=== PATIENT | female | born 1965 | race Caucasian/White ===

== ENCOUNTER 2021-10-13 14:03 | Outpatient (REF) | payer BC, SELFPAY ==
--- NOTE | ~2021-10-13 | CT_ITS ---
EXAMINATION: CT ABDOMEN AND PELVIS WITH CONTRAST CLINICAL INFORMATION: Epigastric pain. COMPARISON: None TECHNIQUE: Multidetector volumetric images were obtained from the superior aspect of the liver through the pubic symphysis following administration 85 mL of Omnipaque 350 intravenous contrast. Sagittal and coronal reformatted images were obtained on the technologist's workstation. Oral contrast: Yes. This CT examination was performed using dose optimization techniques as appropriate, variously including the following: *Automated exposure control *Adjustment of mA and/or kV according to patient size (this includes techniques or standardized protocols for targeted exams where dose is matched to indication/reason for exam; i.e. extremities or head) *Use of iterative reconstruction technique DLP: 256 mGy-cm FINDINGS: LUNG BASES: The visualized lung bases are unremarkable. LIVER, GALLBLADDER, AND BILIARY TREE: The liver measures 17.7 cm craniocaudally but is otherwise normal in attenuation and shape without discrete focal abnormalities. Prior cholecystectomy with expected mild dilatation of the common bile duct and no significant intrahepatic biliary ductal dilatation. PANCREAS: Unremarkable. SPLEEN: Unremarkable. ADRENAL GLANDS: Unremarkable. KIDNEYS AND URETERS: The kidneys are normal in size, shape, and attenuation. No hydronephrosis, hydroureter, or calculi seen. No perinephric stranding. BLADDER: Unremarkable. GASTROINTESTINAL TRACT: The stomach and the small bowel are nondilated. The appendix is not definitely identified, however, there are no regional inflammatory changes to suspect acute appendicitis. Moderate sigmoid diverticulosis with no significant associated wall thickening or pericolonic inflammatory changes to suspect acute diverticulitis. No bowel obstruction. ABDOMINAL WALL: No significant hernia is appreciated. LYMPH NODES: No lymphadenopathy by size criteria. VASCULAR: Scattered atherosclerotic disease. The abdominal aorta is of normal diameter. PELVIC VISCERA: Unremarkable. OSSEOUS STRUCTURES: Nonaggressive-appearing fibro-osseous lesion in the left acetabulum (3:64). Mild thoracolumbar spondylosis. CT/CT abdomen pelvis w con IMPRESSION: Sigmoid diverticulosis but no evidence to suggest acute diverticulitis. Borderline hepatomegaly. Otherwise, no definite abnormalities to explain the patient's symptoms.
[2021-10-13] MEDS: iohexoL 350 MG/ML 100 ML INFUS..BTL IV (16:51)
[2021-10-13] MEDS: Barium Sulfate Oral (Vanilla) 450 ML ORAL.SUSP 900 ML PO (16:52)
[2021-10-13 17:49] LABS: Appearance Urine CLEAR; Color Urine STRAW; Glucose Urine UA NEG (NEG); Leukocyte Esterase Urine NEG (NEG); Nitrite Urine NEG (NEG); Specific Gravity - Urine <= 1.005 (1.005-1.025); Urine Blood TRACE (NEG); Urine Ketones NEG (NEG); Urine Protein NEG (NEG-TRACE)
[2021-10-13 17:59] LABS: WBC Urine 0-2 /HPF (0-4)
== END 2021-10-13 14:04 | disposition home or self-care (01) ==
LOC: HO.CT 14:03
PROVIDERS: PCP Internal Medicine; Visit Provider Internal Medicine
DX: R10.0 Acute abdomen (principal); R82.90 Unspecified abnormal findings in urine; R10.13 Epigastric pain
CPT/HCPCS: 74177; 81001; 87086; Q9967

== ENCOUNTER 2021-11-16 15:15 | Emergency (ER) | payer BC, SELFPAY ==
--- NOTE | ~2021-11-16 | US_ITS ---
EXAMINATION: US ABDOMEN LIMITED CLINICAL INFORMATION: Upper abdominal pain with weight loss. COMPARISON: CT abdomen pelvis 10/13/2021 TECHNIQUE: Real-time imaging of the right upper quadrant abdominal viscera. FINDINGS: PANCREAS: Normal. LIVER: The liver is normal in size. The liver contour is normal. Parenchymal echogenicity is normal. No focal hepatic lesion. There is no intrahepatic biliary duct dilatation seen. GALLBLADDER: Patient status post cholecystectomy COMMON BILE DUCT: Normal in caliber measuring 0.7 cm in diameter. RIGHT KIDNEY: No hydronephrosis. No renal calculi or focal parenchymal lesions. The kidney measures 10.7 cm in maximum dimension. FREE FLUID: None. In the area of the patient's periumbilical pain, a 2.3 x 1.2 x 1.7 cm mass is seen just beneath the abdominal wall that has appearances suggestive of a lymph node with a large fatty mary. However, on the CT scan, an abnormal mass is not seen in this area, just bowel. It is possible that the above-mentioned abnormality could represent portion of a loop of bowel as well. US/US abdomen limited IMPRESSION: A definite etiology for the patient's upper abdominal pain and weight loss has not been found.
[2021-11-16 15:27] VITALS: BP 123/74; PULSE 85; RESP 18; TEMP 36.8; O2SAT 95; BMI 21.1
[2021-11-16 18:20] LABS: MANUAL DIFF FLAG NO
[2021-11-16 18:24] LABS: Basophils Percent Auto 0.4 % (0-2); Eosinophils Absolute Auto 0.2 X10*3/uL (0.0-0.4); Eosinophils Percent Auto 1.6 % (0-4); Hematocrit 48.3 % (37.0-47.0); Hemoglobin 16.3 g/dl (12.0-16.0); Imm Gran Abs Auto 0.02 X10*3/uL (0.00-0.03); Imm Gran Pct Auto 0.2 % (0.0-0.4); Lymphocytes Absolute Auto 3.1 X10*3/uL (1.2-4.9); Lymphocytes Percent Auto 31.8 % (20-40); Mean Corpuscular HGB Conc 33.7 g/dl (31.0-35.0); Mean Corpuscular Hemoglobin 30.5 pg (27.0-33.0); Mean Corpuscular Volume 90.3 fL (80.0-98.0); Mean Platelet Volume 10.2 fL (9.4-12.3); Monocytes Absolute Auto 0.7 X10*3/uL (0.1-1.2); Neutrophils Absolute Auto 5.8 x10*3/uL (2.0-8.3); Platelet Count 295 X10*3/uL (160-400); Red Blood Count 5.35 X10*6/uL (4.20-5.50); White Blood Count 9.8 X10*3/uL (4.8-10.8)
[2021-11-16 18:30] LABS: Appearance Urine CLEAR; Color Urine YELLOW; Glucose Urine UA NEG (NEG); Leukocyte Esterase Urine NEG (NEG); Nitrite Urine NEG (NEG); Specific Gravity - Urine 1.025 (1.005-1.025); Urine Blood NEG (NEG); Urine Ketones 15 MG/DL (NEG); Urine Protein NEG (NEG-TRACE)
[2021-11-16 18:44] LABS: Alanine Aminotransferase 14 U/L (0-31); Albumin Level 4.8 g/dL (3.5-5.0); Alkaline Phosphatase 88 U/L (39-117); Anion Gap 12 (12-20); Aspartate Amino Transferase 12 U/L (5-31); Bilirubin Total 0.8 mg/dL (0.0-1.0); Blood Urea Nitrogen 9 mg/dL (9-16); Calcium 10.4 mg/dL (8.4-10.2); Carbon Dioxide 31 mmol/L (22-29); Chloride 104 mmol/L (96-108); Estimated Glomerular Filt Rate > 60; Glucose Random 82 mg/dL (60-115); Potassium 3.7 mmol/L (3.3-5.1); Sodium 143 mmol/L (135-145); Total Protein 7.9 g/dL (6.5-8.0)
--- NOTE | 2021-11-16 20:57 | ED_ITS ---
HPI - Abdominal Pain General Chief Complaint: Abdominal Pain Stated Complaint: Stomach Pain X 3 Wks Time Seen by Provider: 11/16/21 18:06 Source: patient Mode of arrival: ambulatory Limitations: no limitations History of Present Illness HPI narrative: Patient with chronic abdominal pain history of anxiety having upper abdominal pain for last 2 months with nausea diarrhea been to PCP had a CT scan done last month was negative plan to see shared services representative for further workup. No fever or chills had endoscopy and colonoscopy few years ago was negative, feel depressed and anxious on gluten free diet without much response Related Data Previous Rx's Medication Instructions Recorded dicyclomine 20 mg tablet 20 mg PO QID PRN #20 tab 11/16/21 Allergies Allergy/AdvReac Type Severity Reaction Status Date / Time Penicillins [PENICILLINS] Allergy Mild RASH, Verified 11/16/21 15:26 DIARHEA sulfamethoxazole Allergy Mild RASH, Verified 11/16/21 15:26 [From BACTRIM] DIARHEA trimethoprim [From BACTRIM] Allergy Mild RASH, Verified 11/16/21 15:26 DIARHEA Review of Systems Review of Systems Yes all other systems are reviewed and are negative [facility] Social History Social History Alcohol intake: never Patient Tobacco Use Status: Never used Tobacco Use of substances other than those prescribed or required for medical reasons: No Advance Directives: No Advance Directives Information Provided: No Physical Exam ED Vital Signs: Vital Signs - 24 hr 11/16/21 15:27 11/16/21 21:06 11/16/21 22:44 Temperature 98.2 F 98.8 F Pulse Rate 85 58 55 Respiratory Rate 18 16 14 Blood Pressure 123/74 126/66 108/55 L Pulse Oximetry 95 97 97 BMI result Body Mass Index 21.1 Appearance: Alert. Oriented X3. No acute distress anxious Eyes: No pallor recur ENT: Pharynx normal. Oral Mucosa moist Neck: Normal inspection. Neck supple. CVS: Normal heart rate and rhythm. Pulses normal. Respiratory: No respiratory distress. Equal air entry bilateral, no wheezing /rales/rhonchi Abdomen: Soft small umbilical hernia containing fat not reducible, slightly tender, Bowel sounds are present, no CVA tenderness Skin: Skin warm and dry. Normal skin color. Normal skin turgor. Extremities: No lower extremity edema. No calf tenderness Neuro: Oriented X 3. MDM - Abdominal Pain MDM Narrative Medical decision making narrative: Patient with diffuse abdominal pain for several months with increased anxiety and weight loss likely from depression workup so far is negative had a CT scan last month an ultrasound today which did not show any acute patient has a follow -up planned shared services representative discharge patient home Lab Data Attestation: I reviewed the patient's lab results. Result diagrams: 11/16/21 18:14 11/16/21 18:14 Labs: Lab Results 11/16/21 11/16/21 11/16/21 Range/Units 18:14 18:14 18:14 WBC 9.8 (4.8-10.8) X10*3/uL RBC 5.35 (4.20-5.50) X10*6/uL Hgb 16.3 H (12.0-16.0) g/dl Hct 48.3 H (37.0-47.0) % MCV 90.3 (80.0-98.0) fL MCH 30.5 (27.0-33.0) pg MCHC 33.7 (31.0-35.0) g/dl RDW 12.0 (11.0-16.0) % Plt Count 295 (160-400) X10*3/uL MPV 10.2 (9.4-12.3) fL Immature Gran % (Auto) 0.2 (0.0-0.4) % Neut % (Auto) 59.0 (45-73) % Lymph % (Auto) 31.8 (20-40) % [place] % (Auto) 7.0 (2-11) % Eos % (Auto) 1.6 (0-4) % Baso % (Auto) 0.4 (0-2) % Lymph # (Auto) 3.1 (1.2-4.9) X10*3/uL [place] # (Auto) 0.7 (0.1-1.2) X10*3/uL Eos # (Auto) 0.2 (0.0-0.4) X10*3/uL Baso # (Auto) 0.0 (0.0-0.2) X10*3/uL Abs Immat Gran (auto) 0.02 (0.00-0.03) X10*3/uL Absolute Neuts (auto) 5.8 (2.0-8.3) x10*3/uL Absolute Nucleated RBC 0.000 (0.0-0.012) X10*3/uL Nucleated RBC % (auto) 0.0 (0.0-0.2) /100WBC Sodium 143 (135-145) mmol/L Potassium 3.7 (3.3-5.1) mmol/L Chloride 104 (96-108) mmol/L Carbon Dioxide 31 H (22-29) mmol/L Anion Gap 12 (12-20) BUN 9 (9-16) mg/dL Creatinine 0.85 (0.5-1.4) mg/dL Estim Creat Clear Calc 68.0 Estimated GFR > 60 Random Glucose 82 (60-115) mg/dL Calcium 10.4 H (8.4-10.2) mg/dL Total Bilirubin 0.8 (0.0-1.0) mg/dL AST 12 (5-31) U/L ALT 14 (0-31) U/L Alkaline Phosphatase 88 (39-117) U/L Total Protein 7.9 (6.5-8.0) g/dL Albumin 4.8 (3.5-5.0) g/dL Urine Color YELLOW Urine Appearance CLEAR Urine pH 6.0 (5.0-8.0) Ur Specific [place] 1.025 (1.005-1.025) Urine Protein NEG (NEG-TRACE) MG/DL Urine Glucose (UA) NEG (NEG) MG/DL Urine Ketones 15 (NEG) MG/DL Urine Blood NEG (NEG) Urine Nitrite NEG (NEG) Ur Leukocyte Esterase NEG (NEG) Discharge Plan Discharge Clinical Impression: Abdominal pain Patient Disposition: Home, Self-Care Instructions: Chronic Abdominal Pain (ED) Additional Instructions: Continue medications as prescribed by her PCP and follow with shared services representative as scheduled take Dicyclomine tablets for abdominal discomfort as prescribed Prescriptions: New dicyclomine 20 mg tablet 20 mg PO QID PRN (Reason: abdominal pain) Qty: 20 0RF Interventions: ED Discharge Assessment Last Done: 11/16/21 22:46 Discharge Date/Time: 11/16/21 23:00
[2021-11-16 21:06] VITALS: BP 126/66; PULSE 58; RESP 16; O2SAT 97
--- NOTE | 2021-11-16 21:07 | ED.ABDPAIN ---
HPI - Abdominal Pain General Chief Complaint: Abdominal Pain Stated Complaint: Stomach Pain X 3 Wks Time Seen by Provider: 11/16/21 18:06 Source: patient Mode of arrival: ambulatory Related Data Allergies Allergy/AdvReac Type Severity Reaction Status Date / Time Penicillins [PENICILLINS] Allergy Mild RASH, Verified 11/16/21 15:26 DIARHEA sulfamethoxazole Allergy Mild RASH, Verified 11/16/21 15:26 [From BACTRIM] DIARHEA trimethoprim [From BACTRIM] Allergy Mild RASH, Verified 11/16/21 15:26 DIARHEA PMFSH Social History Social History Advance Directives: No Advance Directives Information Provided: No Physical Exam ED Vital Signs: Vital Signs - 24 hr 11/16/21 15:27 Temperature 98.2 F Pulse Rate 85 Respiratory Rate 18 Blood Pressure 123/74 Pulse Oximetry 95 BMI result Body Mass Index 21.1 MDM - Abdominal Pain Lab Data Result diagrams: 11/16/21 18:14 11/16/21 18:14 Labs: Lab Results 11/16/21 11/16/21 11/16/21 Range/Units 18:14 18:14 18:14 WBC 9.8 (4.8-10.8) X10*3/uL RBC 5.35 (4.20-5.50) X10*6/uL Hgb 16.3 H (12.0-16.0) g/dl Hct 48.3 H (37.0-47.0) % MCV 90.3 (80.0-98.0) fL MCH 30.5 (27.0-33.0) pg MCHC 33.7 (31.0-35.0) g/dl RDW 12.0 (11.0-16.0) % Plt Count 295 (160-400) X10*3/uL MPV 10.2 (9.4-12.3) fL Immature Gran % (Auto) 0.2 (0.0-0.4) % Neut % (Auto) 59.0 (45-73) % Lymph % (Auto) 31.8 (20-40) % [place] % (Auto) 7.0 (2-11) % Eos % (Auto) 1.6 (0-4) % Baso % (Auto) 0.4 (0-2) % Lymph # (Auto) 3.1 (1.2-4.9) X10*3/uL [place] # (Auto) 0.7 (0.1-1.2) X10*3/uL Eos # (Auto) 0.2 (0.0-0.4) X10*3/uL Baso # (Auto) 0.0 (0.0-0.2) X10*3/uL Abs Immat Gran (auto) 0.02 (0.00-0.03) X10*3/uL Absolute Neuts (auto) 5.8 (2.0-8.3) x10*3/uL Absolute Nucleated RBC 0.000 (0.0-0.012) X10*3/uL Nucleated RBC % (auto) 0.0 (0.0-0.2) /100WBC Sodium 143 (135-145) mmol/L Potassium 3.7 (3.3-5.1) mmol/L Chloride 104 (96-108) mmol/L Carbon Dioxide 31 H (22-29) mmol/L Anion Gap 12 (12-20) BUN 9 (9-16) mg/dL Creatinine 0.85 (0.5-1.4) mg/dL Estim Creat Clear Calc 68.0 Estimated GFR > 60 Random Glucose 82 (60-115) mg/dL Calcium 10.4 H (8.4-10.2) mg/dL Total Bilirubin 0.8 (0.0-1.0) mg/dL AST 12 (5-31) U/L ALT 14 (0-31) U/L Alkaline Phosphatase 88 (39-117) U/L Total Protein 7.9 (6.5-8.0) g/dL Albumin 4.8 (3.5-5.0) g/dL Urine Color YELLOW Urine Appearance CLEAR Urine pH 6.0 (5.0-8.0) Ur Specific [place] 1.025 (1.005-1.025) Urine Protein NEG (NEG-TRACE) MG/DL Urine Glucose (UA) NEG (NEG) MG/DL Urine Ketones 15 (NEG) MG/DL Urine Blood NEG (NEG) Urine Nitrite NEG (NEG) Ur Leukocyte Esterase NEG (NEG)
[2021-11-16] MEDS: Ketorolac Tromethamine 30 MG/ML VIAL IVPUSH (21:19)
[2021-11-16] MEDS: Dicyclomine HCl 10 MG CAPSULE 20 MG PO (21:19)
[2021-11-16] MEDS: 0.9 % Sodium Chloride 1,000 ML 999 ML IV (21:19)
[2021-11-16 22:44] VITALS: BP 108/55; PULSE 55; RESP 14; TEMP 37.1; O2SAT 97
== END 2021-11-16 23:00 | disposition home or self-care (01) ==
PROVIDERS: Physician Assistant Medical; Emergency Provider Internal Medicine; PCP Internal Medicine
DX: R10.10 Upper abdominal pain, unspecified (principal); Z79.899 Other long term (current) drug therapy
CPT/HCPCS: 36415; 76705; 80053; 81003; 85025; 96361; 96374; 99285; J1885

== ENCOUNTER 2023-12-27 08:04 | Outpatient (AMB) | payer BC, SELFPAY ==
[2023-12-27 08:09] VITALS: BP 132/74; PULSE 74; TEMP 36.6; O2SAT 98; BMI 32.1
--- NOTE | 2023-12-27 08:09 | MHC.OFFWIV ---
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 Intake Note: pt is here for left ankle/leg swollen with pain due to fall this morning Patient Tobacco Use Status: Never used Tobacco Allergies Penicillins [PENICILLINS] Allergy (Mild, Verified 12/27/23 08:15) RASH, DIARHEA sulfamethoxazole [From BACTRIM] Allergy (Mild, Verified 12/27/23 08:15) RASH, DIARHEA trimethoprim [From BACTRIM] Allergy (Mild, Verified 12/27/23 08:15) RASH, DIARHEA Do you need a note to return to daycare/school/sports/work: Yes HPI HPI Comments History of Present Illness Details Pt is a 58 yr old female who presents after tripping over her puppy this morning, she states her left leg went backwards and she twisted her left ankle. She is able to bear weight on it with some minor pain. She iced it and took ibuprofen which helped. She denies any numbness, tingling or loss of strength in the ankle and foot. [facility] Social History Alcohol intake: never Patient Tobacco Use Status: Never used Tobacco Review of Systems Const All systems reviewed & are unremarkable except as noted in HPI and below Physical Exam Vital Signs: Last Vital Signs Temp 97.8 F 12/27/23 08:09 Pulse 74 12/27/23 08:09 BP 132/74 12/27/23 08:09 Pulse Ox 98 12/27/23 08:09 Oxygen Delivery Method Room Air 12/27/23 08:09 BMI result Body Mass Index 32.1 Const General: cooperative, healthy appearing, comfortable and no acute distress Nutritional Appearance: average body habitus Orientation/consciousness: patient oriented x3 Limitations: no limitations HEENT Head: Yes normal to inspection and Yes normocephalic Eyes General: appearance normal, both eyes and all related structures Resp Effort & Inspection: normal respiratory effort and able to speak in complete sentences Neuro General: patient oriented x3 Extrem Left lower extremity: full ROM and ankle Details: tenderness Location: of the anterior talofibular ligament, swelling Details: laterally and normal ROM; no warmth, no abrasions, no lacerations, no ecchymosis and no penetrating wound Assessment & Plan Assessment & Plan (1) Sprain of anterior talofibular ligament of left ankle: Code(s): S93.492A - Sprain of other ligament of left ankle, initial encounter Qualifiers: Encounter type: initial encounter Qualified Code(s): S93.492A - Sprain of other ligament of left ankle, initial encounter Plan: Wrapped ankle with tony bandage, instructed pt on how to do so at home. Advised rest, ice and ibuprofen. If not increasing better over next few days, call me and we can get x-ray otherwise does not meet [place] ankle rules for xray at this time. Medications: Discontinued dicyclomine Discontinued Reason: Patient Completed Course 20 mg PO QID PRN 20 tabs 0RF abdominal pain Coding Level of Care Code New Pt Level 3 (91771) Diagnoses Sprain of anterior talofibular ligament of left ankle, initial encounter S93.492A Encounter type: initial encounter
== END 2023-12-27 08:50 | disposition home or self-care (01) ==
PROVIDERS: PCP Internal Medicine; Visit Provider Physician Assistant
DX: S93.492A Sprain of other ligament of left ankle, initial encounter (principal)
CPT/HCPCS: 99203

== ENCOUNTER 2024-05-09 15:39 | Emergency (ER) | payer BC, SELFPAY ==
--- NOTE | ~2024-05-09 | CT_ITS ---
EXAMINATION: CT ABDOMEN AND PELVIS WITHOUT CONTRAST CLINICAL INFORMATION: Epigastric and right upper quadrant pain with diarrhea COMPARISON: Ultrasound abdomen earlier today along with CT abdomen pelvis 10/13/2021 TECHNIQUE: Multidetector volumetric imaging was performed from the superior aspect of the liver through the pubic symphysis. Sagittal and coronal reformatted images were obtained on the technologist's workstation. This CT examination was performed using dose optimization techniques as appropriate, variously including the following: *Automated exposure control *Adjustment of mA and/or kV according to patient size (this includes techniques or standardized protocols for targeted exams where dose is matched to indication/reason for exam; i.e. extremities or head) *Use of iterative reconstruction technique DLP: 677 mGy-cm FINDINGS: LUNG BASES: The visualized lung bases are unremarkable. LIVER, GALLBLADDER, AND BILIARY TREE: The liver is minimally enlarged at 17.3 cm in greatest length with normal, shape and attenuation. No focal hepatic lesion or biliary ductal dilatation is present. Status post cholecystectomy. PANCREAS: Unremarkable. SPLEEN: Unremarkable. ADRENAL GLANDS: Unremarkable. KIDNEYS AND URETERS: The kidneys are normal in size, shape, and attenuation. No hydronephrosis, hydroureter, or calculi seen. No perinephric stranding. BLADDER: Unremarkable. GASTROINTESTINAL TRACT: The small and large bowel are unremarkable. The appendix is unremarkable. ABDOMINAL WALL: There is a small periumbilical hernia seen containing only fat. LYMPH NODES: Normal. VASCULAR: Unremarkable. PELVIC VISCERA: The uterus and adnexa are unremarkable. OSSEOUS STRUCTURES: Mild degenerative changes are seen at L5-S1. CT/CT abdomen pelvis wo IV con IMPRESSION: 1. A cause for the patient's epigastric and right upper quadrant pain has not been found. 2. Incidental note made of minimal hepatomegaly, cholecystectomy and small periumbilical hernia containing only fat. Fleischner guidelines were followed. Electronically signed by: Antwan Luna MD 05/09/2024 08:18 PM EDT
--- NOTE | ~2024-05-09 | US_ITS ---
EXAMINATION: US ABDOMEN LIMITED CLINICAL INFORMATION: Right upper quadrant/epigastric pain. COMPARISON: Abdominal ultrasound 11/16/2021. TECHNIQUE: Real-time imaging of the right upper quadrant abdominal viscera. FINDINGS: PANCREAS: Normal. LIVER: Normal. The liver is normal in size. The liver contour is normal. Parenchymal echogenicity is normal. No focal hepatic lesion. There is no intrahepatic biliary duct dilatation seen. GALLBLADDER: Cholecystectomy. COMMON BILE DUCT: Normal in caliber measuring 0.6 cm in diameter. RIGHT KIDNEY: Normal. No hydronephrosis. No renal calculi or focal parenchymal lesions. The kidney measures 10.3 cm in maximum dimension. FREE FLUID: None. US/US abdomen limited IMPRESSION: No acute sonographic abnormalities to explain the patient's symptoms. Electronically signed by: Lyudmila Ng MD 05/09/2024 05:34 PM EDT
[2024-05-09 15:52] VITALS: BP 156/70; PULSE 84; RESP 18; TEMP 36.7; O2SAT 98; BMI 28.6
--- NOTE | 2024-05-09 15:57 | ED.ABDPAIN ---
HPI - Abdominal Pain General Chief Complaint: Abdominal Pain Stated Complaint: dr sent in due to irregular lab results/wbc Time Seen by Provider: 05/09/24 19:50 Source: patient Mode of arrival: ambulatory Limitations: no limitations History of Present Illness HPI narrative: This is a 58-year-old woman with a past medical history of anxiety, IBS, history of cholecystectomy who presents for evaluation of abdominal pain. Patient reports ongoing abdominal pain for the last 4 weeks. Patient states that she saw her primary care doctor a week ago. Patient states that she was provided Bentyl and Carafate. She reports ongoing upper abdominal pain. She states no associated emesis, but states feeling nauseous at times. She states no hematemesis. She reports having 2-3 loose stools intermittently. She states no melena or hematochezia. She states no back pain. She states no lower abdominal pain. She states no associated back pain. She reports tolerating oral intake including liquids and solids, but states decreased appetite. She states no flank pain, dysuria, hematuria or urinary frequency/urgency. She states no fevers or chills. She states no chest pain or difficulty breathing. She states that she has an appointment with her concrete placement equipment operator next Tuesday. Related Data Home Medications ?Medication ?Instructions ?Recorded ?Confirmed citalopram 20 mg tablet 20 mg PO DAILY 12/27/23 lorazepam 0.5 mg tablet 0.5 mg PO DAILY 12/27/23 Previous Rx's ?Medication ?Instructions ?Recorded omeprazole 40 mg capsule,delayed 40 mg PO DAILY #14 caps 05/09/24 release Allergies Allergy/AdvReac Type Severity Reaction Status Date / Time Penicillins [PENICILLINS] Allergy Mild RASH, Verified 05/09/24 15:56 DIARHEA sulfamethoxazole Allergy Mild RASH, Verified 05/09/24 15:56 [From BACTRIM] DIARHEA trimethoprim [From BACTRIM] Allergy Mild RASH, Verified 05/09/24 15:56 DIARHEA Review of Systems Review of Systems ROS as per [facility] Social History Social History Alcohol intake: never Patient Tobacco Use Status: Never used Tobacco Advance Directives: No Advance Directives Information Provided: No Physical Exam ED Vital Signs: Vital Signs - 24 hr 05/09/24 15:52 05/09/24 19:54 Temperature 98.0 F 97.8 F Pulse Rate 84 77 Respiratory Rate 18 16 Blood Pressure 156/70 H 146/67 H Pulse Oximetry 98 95 Oxygen Delivery Method Room Air Room Air BMI result Body Mass Index 28.6 Gen: NAD, AOx3 HEENT: NCAT, EOMI, normal conjunctiva CV: RRR Pulm: CTAB, no increased work of breathing GI: Soft, mild epigastric tenderness to palpation, ND, no rebound, guarding or rigidity Neuro: Grossly non focal Course Course Course Narrative: This is a Rapid Medical Examination (RME) performed by Aldo Stack PA-C in triage. Full HPI, ROS, assessment and treatment plan per primary provider in the Main ED. 58 yo female hx of IBS-D here for eval of elevated white count at PCP office. Reports epigastric/right upper quadrant abdominal pain x2 weeks, worsening. Endorses decreased appetite. Saw PCP this morning for blood work. Noted white count of 12.7 with left shift. Sent to ER for further evaluation. Admits to similar in the past, treated for gastritis without improvement. no fever/chills, constipation, n/v. + ttp of epigastric/ RUQ without rebound or guarding. Plan: Labs, UA, ultrasound. Will defer further imaging to primary provider Medical Decision Making Medical Decision Making MDM Narrative: Differential diagnosis includes, but is not limited to gastritis, IBS, pancreatitis, acute kidney injury, electrolyte derangement. Patient is afebrile and hemodynamically stable on room air. Exam is benign and reassuring. I reviewed and interpreted labs, which are notable for a mild hypokalemia for which patient is provided oral potassium repletion. Otherwise labs including CBC, metabolic panel and lipase are within normal limits. I reviewed radiology impression of abdominal ultrasound and CT imaging as below, but which are benign and reassuring. On re-examination, patient is well-appearing and in no acute distress. ?Patient states symptoms have resolved. ?There is no indication for further emergent evaluation in this otherwise well-appearing patient as above. ?Patient is provided written and verbal instructions, educational materials, prescription for omeprazole, recommendations for outpatient follow-up, strict return precautions and teach back is performed. ?Patient states understanding and agreement with plan of care. ?Patient is discharged home in stable and improved condition. Admission/Observation Consideration of admission/observation: Escalation of care including admission/observation considered Lab Data MDM Lab Attestation statement: I reviewed the patient's lab results. 05/09/24 16:07 05/09/24 16:07 Labs: Lab Results 05/09/24 Range/Units 16:07 WBC 9.2 (4.8-10.8) X10*3/uL RBC 5.24 (4.20-5.50) X10*6/uL Hgb 15.8 (12.0-16.0) g/dl Hct 45.8 (37.0-47.0) % MCV 87.4 (80.0-98.0) fL MCH 30.2 (27.0-33.0) pg MCHC 34.5 (31.0-35.0) g/dl RDW 12.9 (11.0-16.0) % Plt Count 321 (160-400) X10*3/uL MPV 10.3 (9.4-12.3) fL Immature Gran % (Auto) 0.1 (0.0-0.4) % Neut % (Auto) 65.3 (45-73) % Lymph % (Auto) 24.7 (20-40) % [place] % (Auto) 8.3 (2-11) % Eos % (Auto) 1.1 (0-4) % Baso % (Auto) 0.5 (0-2) % Lymph # (Auto) 2.3 (1.2-4.9) X10*3/uL [place] # (Auto) 0.8 (0.1-1.2) X10*3/uL Eos # (Auto) 0.1 (0.0-0.4) X10*3/uL Baso # (Auto) 0.1 (0.0-0.2) X10*3/uL Abs Immat Gran (auto) 0.01 (0.00-0.03) X10*3/uL Absolute Neuts (auto) 6.0 (2.0-8.3) x10*3/uL Absolute Nucleated RBC 0.000 (0.0-0.012) X10*3/uL Nucleated RBC % (auto) 0.0 (0.0-0.2) /100WBC Sodium 143 (135-145) mmol/L Potassium 3.1 L (3.3-5.1) mmol/L Chloride 107 (96-108) mmol/L Carbon Dioxide 25 (22-29) mmol/L Anion Gap 14 (12-20) BUN 7 L (9-16) mg/dL Creatinine 0.81 (0.5-1.4) mg/dL Estim Creat Clear Calc 80.1 Estimated GFR > 60 Random Glucose 93 (60-115) mg/dL Calcium 9.8 (8.4-10.2) mg/dL Magnesium 2.3 (1.6-2.6) mg/dL Total Bilirubin 0.6 (0.0-1.0) mg/dL AST 17 (5-31) U/L ALT 26 (0-31) U/L Alkaline Phosphatase 116 (39-117) U/L Total Protein 7.5 (6.5-8.0) g/dL Albumin 4.5 (3.5-5.0) g/dL Lipase 22 (8-78) U/L Independent Interpretation I performed an independent interpretation of an: Ultrasound and CT Scan Interpretation: US/US abdomen limited IMPRESSION: No acute sonographic abnormalities to explain the patient's symptoms. Electronically signed by: Lyudmila Ng MD 05/09/2024 05:34 PM EDT RP Dictated By: Lyudmila Ng Signed By: <Electronically signed by Lyudmila Ng in OV> 05/09/[address]/CT abdomen pelvis wo IV con IMPRESSION: 1. A cause for the patient's epigastric and right upper quadrant pain has not been found. 2. Incidental note made of minimal hepatomegaly, cholecystectomy and small periumbilical hernia containing only fat. Fleischner guidelines were followed. Electronically signed by: Antwan Luna MD 05/09/2024 08:18 PM EDT RP Dictated By: Antwan Luna MD Signed By: <Electronically signed by Antwan Luna MD in OV> 05/09/24 2018 Discharge Plan Discharge Clinical Impression: Epigastric abdominal pain Patient Disposition: Home, Self-Care Instructions: Epigastric Pain (ED) Additional Instructions: You were seen and evaluated in the emergency room. Your vital signs were normal. Your blood work was overall very reassuring including cell counts, kidney function, liver function tests, metabolic panel and lipase levels. Your potassium was mildly low for which you were provided potassium pills. Your ultrasound and CT scan were normal with no emergent findings. You are given a prescription for an acid reducing medication called omeprazole. Please take as directed starting tomorrow. You are safe to be discharged and follow up with her concrete placement equipment operator next week at your previously scheduled appointment. Please follow-up with your primary care doctor in the next 5-7 days. ? Please return to the emergency room if you develop any worsening symptoms including, but not limited to fever, bloody vomit or bloody stools, severe pain or inability to eat/drink. Prescriptions: New omeprazole 40 mg capsule,delayed release(DR/EC) 40 mg PO DAILY Qty: 14 0RF No Action citalopram 20 mg tablet 20 mg PO DAILY lorazepam 0.5 mg tablet 0.5 mg PO DAILY Print Language: [place]
[2024-05-09 16:12] LABS: MANUAL DIFF FLAG NO
[2024-05-09 16:21] LABS: Basophils Absolute Auto 0.1 X10*3/uL (0.0-0.2); Basophils Percent Auto 0.5 % (0-2); Eosinophils Absolute Auto 0.1 X10*3/uL (0.0-0.4); Eosinophils Percent Auto 1.1 % (0-4); Hematocrit 45.8 % (37.0-47.0); Hemoglobin 15.8 g/dl (12.0-16.0); Imm Gran Abs Auto 0.01 X10*3/uL (0.00-0.03); Imm Gran Pct Auto 0.1 % (0.0-0.4); Lymphocytes Absolute Auto 2.3 X10*3/uL (1.2-4.9); Lymphocytes Percent Auto 24.7 % (20-40); Mean Corpuscular HGB Conc 34.5 g/dl (31.0-35.0); Mean Corpuscular Hemoglobin 30.2 pg (27.0-33.0); Mean Corpuscular Volume 87.4 fL (80.0-98.0); Mean Platelet Volume 10.3 fL (9.4-12.3); Monocytes Absolute Auto 0.8 X10*3/uL (0.1-1.2); Monocytes Percent Auto 8.3 % (2-11); Neutrophils Percent Auto 65.3 % (45-73); Platelet Count 321 X10*3/uL (160-400); Red Blood Count 5.24 X10*6/uL (4.20-5.50); Red Cell Distribution Width 12.9 % (11.0-16.0); White Blood Count 9.2 X10*3/uL (4.8-10.8)
[2024-05-09 16:38] LABS: Alanine Aminotransferase 26 U/L (0-31); Albumin Level 4.5 g/dL (3.5-5.0); Alkaline Phosphatase 116 U/L (39-117); Anion Gap 14 (12-20); Aspartate Amino Transferase 17 U/L (5-31); Bilirubin Total 0.6 mg/dL (0.0-1.0); Blood Urea Nitrogen 7 mg/dL (9-16); Calcium 9.8 mg/dL (8.4-10.2); Carbon Dioxide 25 mmol/L (22-29); Chloride 107 mmol/L (96-108); Creatinine Clr Calc Pharmacy 80.1; Estimated Glomerular Filt Rate > 60; Glucose Random 93 mg/dL (60-115); Lipase 22 U/L (8-78); Magnesium 2.3 mg/dL (1.6-2.6); Potassium 3.1 mmol/L (3.3-5.1); Sodium 143 mmol/L (135-145); Total Protein 7.5 g/dL (6.5-8.0)
[2024-05-09 19:54] VITALS: BP 146/67; PULSE 77; RESP 16; TEMP 36.6; O2SAT 95
[2024-05-09] MEDS: Omeprazole 40 MG CAPSULE.DR PO (20:35)
[2024-05-09] MEDS: Potassium Chloride ER 20 MEQ TAB.ER.PRT PO ×2 (20:35)
[2024-05-09 20:43] VITALS: BP 146/67; PULSE 77; RESP 16; TEMP 36.6; O2SAT 95
== END 2024-05-09 20:44 | disposition home or self-care (01) ==
PROVIDERS: Physician Assistant Medical; Emergency Provider Emergency Medicine; PCP Internal Medicine
DX: R10.13 Epigastric pain (principal)
CPT/HCPCS: 36415; 74176; 76705; 80053; 83690; 83735; 85025; 99284

== ENCOUNTER 2024-08-02 07:44 | Outpatient (REF) | payer BC, SELFPAY ==
--- OUTSIDE RECORDS SUMMARY | 2024-08-02 07:48 | XMS_ITS ---
Author Organization [facility] Address [address] [facility] [place] [place] [address] Care Team Providers Care Pattern Grader Supervisor Name Role Phone Charlie Vela Primary Care Provider Michelle Au [phone] Encounters Encounter Location Date Provider Diagnosis [address] [address] 04/06/2024 Michelle Umaña Plan Of Treatment No Information Progress Notes * Sarita CHEUNG ADOB:1965 (59 yo F)Acc No.[id number]:04/06/2024 Progress Notes Patient:?Sarita CHEUNG Provider:?Michelle Umaña DPM :1965???Age:58 Y???Sex:Female D ate:04/06/2024 Address:[address] [id number] Pcp:Charlie Vela Subjective: * Chief Complaints: * ??? * Medical History:? Objective: * Vitals:? Assessment: Plan: * Treatment: * Images: * The named appointment provid er may or may not be the originator of this progress note, and it is not deemed complete until electronically signed by the appointment provider. Sign off status: Pending * Provider:Tamra Umaña DPM Date:?2023 Generated for Angie head/Yaw/eTransmitting on:?08/02/2024 07:47 AM EST
--- OUTSIDE RECORDS SUMMARY | 2024-08-02 07:48 | XMS_ITS ---
Author Organization [facility] Address [address] [place] [address] Care Team Providers Care Public Safety Officer Name Role Phone Charlie Vela Primary Care Provider Michelle Au [phone] Encounters Encounter Location Date Provider Diagnosis [facility] [address] [place] [address] 04/12/2024 Michelle Umaña Plan Of Treatment No Information Progress Notes * Sarita CHEUNG ADOB:1965 (59 yo F)Acc No.[id number]:04/12/2024 Progress Notes Patient:?Sarita CHEUNG Provider:?Michelle Umaña DPM :1965???Age:58 Y???Sex:Female D ate:04/12/2024 Address: [id number] Pcp:Charlie Vela Subjective: * [...] * Provider:Tamra Umaña DPM Date:?2023 Generated for Cherii adilene/Yaw/eTransmitting on:?08/02/2024 07:47 AM EST
--- OUTSIDE RECORDS SUMMARY | 2024-08-02 07:48 | XMS_ITS | Patient Health Record ---
[facility] Address [address] [facility] [place] [address] Care Team Providers Care Customs Appraiser Name Role Phone Dane Charlie Primary Care Provider Unavailbalbina e Black, Michelle Unavailable [phone] Allergies Allergen (clinical drug ingredient) Drug/Non Drug Allergy documented on EMR Reaction Allergy Type Onset Date Status Biaxin Unknown Drug Allergy Active azithromycin Zithromax Z-Harshal Unknown Drug Allergy Active erythromycin Erythromycin Unknown Drug Allergy A ctive Penicillin Unknown Drug Allergy Active Reason For Referral No Information Medications Medication SIG (Take, Route, Frequency, Duration) Notes Start Date End Date Status Probiotic Active Acetaminophen Extra Strength 500 MG 1 tablet as needed Orally every 6 hrs for 14 days 03/14/2023 Active Ibuprofen 800 MG 1 tablet with food o r milk as needed Orally Three times a day for 14 days 03/14/2023 Active LORazepam 0.5 MG 1 tablet at bedtime as needed Orally Once a day Active Mirtazapine 7.5 MG 2 tablets at bedtime Orally Once a day for 30 day(s) Not-Taking Gabapentin 300 MG 1 capsule Orally at bedtime for 30 days 03/14/2023 Active Vitamin D3 50 MCG (1999 UT) 1 capsule Orally Once a day for 30 day(s) Active Citalopram Hydrobromide 20 MG 1 tablet Orally Once a day for 30 day(s) Active Sucralfate 1 GM 1 tablet on an empty stomach Orally Twice a day for 30 day(s) Not-Taking Social History Tobacco Use: Social History Observation Description Date Details (start date - stop date) Never Smoker NA - NA Tobacco Use/Smoking Question Answer Notes Are you a: nonsmoker Alcohol Screen Question Answer Notes Did you have a drink contain ing alcohol in the past year? Yes How often did you have a dri nk containing alcohol in the past year? Monthly or less (1 point) Points 1 Interpretation Negative Tobacco use other than smoking: Question Answer Notes Are you an other tobacco user? No Problems Problem Type SNOMED Code ICD Code Onset Dates Problem Status W/U Status Risk Notes Problem Acquired hallux valgus (18095363) Hallux valgus (acquired), left foot (M20.12) Active confirmed Problem Localized, primary osteoarthritis of the ankle and/or foot (610088755) Primary osteoarthrit is, right ankle and foot (M19.071) Active confirmed Problem Localized, primary osteoarthritis of the ankle and/or foot (335153914) Primary osteoarthrit is, left ankle and foot (M19.072) Active confirmed Problem Acquired hallux valgus (94198865) Hallux valgus (acquired), right foot (M20.11) Active confirmed Encounters Encounter Location Date Provider Diagnosis [facility] [place] [address] [place] [address] 08/29/2023 Michelle Umaña Plan Of Treatment No Information Insurance Providers Payer Name Payer Address Payer Phone Subscriber Number Group Number Insured Name Patient Relationship to Insured Coverage Start Date Coverage End Date [facility] [id number] [place] [address] [id number] Jeffry Jiménez Spouse - patient is the spouse of the insured Medical (General) History Medical History History ICD Code Anxiety Depression Lyme disease chronic sinusitis Surgical History Surgery Date(Month/Year)
[2024-08-02 10:13] LABS: MANUAL DIFF FLAG NO
[2024-08-02 10:21] LABS: Basophils Percent Auto 0.5 % (0-2); Eosinophils Absolute Auto 0.1 X10*3/uL (0.0-0.4); Eosinophils Percent Auto 0.8 % (0-4); Hematocrit 44.8 % (37.0-47.0); Hemoglobin 15.2 g/dl (12.0-16.0); Imm Gran Abs Auto 0.02 X10*3/uL (0.00-0.03); Imm Gran Pct Auto 0.2 % (0.0-0.4); Lymphocytes Absolute Auto 1.2 X10*3/uL (1.2-4.9); Lymphocytes Percent Auto 14.4 % (20-40); Mean Corpuscular HGB Conc 33.9 g/dl (31.0-35.0); Mean Corpuscular Hemoglobin 30.3 pg (27.0-33.0); Mean Corpuscular Volume 89.2 fL (80.0-98.0); Mean Platelet Volume 10.9 fL (9.4-12.3); Monocytes Absolute Auto 0.5 X10*3/uL (0.1-1.2); Monocytes Percent Auto 6.3 % (2-11); Neutrophils Absolute Auto 6.4 x10*3/uL (2.0-8.3); Neutrophils Percent Auto 77.8 % (45-73); Platelet Count 315 X10*3/uL (160-400); Red Blood Count 5.02 X10*6/uL (4.20-5.50); Red Cell Distribution Width 13.2 % (11.0-16.0); White Blood Count 8.2 X10*3/uL (4.8-10.8)
[2024-08-02 10:41] LABS: Iron 98 mcg/dL (30-160); Percent Iron Saturation 35 % (15-50); Total Iron Binding Capacity 283 mcg/dL (228-428); Unsaturated Iron Binding 185 ug/dL
[2024-08-02 10:56] LABS: Vitamin D 25-OH Total 70.5 ng/mL (>30)
== END 2024-08-02 07:45 | disposition home or self-care (01) ==
LOC: HO.HMGCLDS 07:44
PROVIDERS: PCP Physician Assistant Surgical; Visit Provider Physician Assistant Surgical
DX: R53.81 Other malaise (principal); R53.83 Other fatigue
CPT/HCPCS: 36415; 82306; 83540; 85025